=== PATIENT | male | born 1950 | race Caucasian/White ===

== ENCOUNTER 2021-12-07 10:34 | Emergency (ER) | payer MEDICARE, BC ==
[~2021-12-07] VITALS: Ht 182.9 cm; Wt 110.0 kg
[2021-12-07] MEDS ORDERED: METFORMIN HCL1000 MG PO (12:40)
[2021-12-07] MEDS ORDERED: LIPITOR20 M1 PO (12:44)
[2021-12-07] MEDS ORDERED: ESCITALOPRAM OX20 MG PO (12:45)
[2021-12-07] MEDS ORDERED: SPIRONOLACTONE25 MG PO (12:46)
[2021-12-07] MEDS ORDERED: BENICAR HCT1 TA2 PO (12:49)
[2021-12-07] MEDS ORDERED: KEFLEX500 MG PO (14:55)
[2021-12-07 15:29] VITALS: BP 121/62
== END 2021-12-07 15:29 | disposition home or self-care (01) ==
LOC: ED 10:34
PROC: 0JQH3ZZ Repair Left Lower Arm Subcutaneous Tissue and Fascia, Percutaneous Approach (ICD-10-PCS; principal; 2021-12-07)
DX: S51.812A Laceration without foreign body of left forearm, initial encounter (principal); I10 Essential (primary) hypertension; E11.9 Type 2 diabetes mellitus without complications; E78.5 Hyperlipidemia, unspecified; V17.0XXA Pedal cycle driver injured in collision with fixed or stationary object in nontraffic accident, initial encounter; Y92.410 Unspecified street and highway as the place of occurrence of the external cause; Y93.55 Activity, bike riding; Z79.84 Long term (current) use of oral hypoglycemic drugs